=== PATIENT | female | born 1990 | race Caucasian/White ===

== ENCOUNTER 2023-08-18 15:32 | Emergency (ER) | payer BC ==
[2023-08-18 16:34] LABS: BASOPHILS ABSOLUTE AUTO 0.02 K/uL (0.00-0.20); BASOPHILS PERCENT AUTO 0.2 % (0.0-2.0); EOSINOPHILS ABSOLUTE AUTO 0.07 K/uL (0.00-0.50); EOSINOPHILS PERCENT AUTO 0.7 % (0.0-5.0); HEMATOCRIT 40.5 % (34.0-46.0); LYMPHOCYTES ABSOLUTE AUTO 1.28 K/uL (0.50-3.50); LYMPHOCYTES PERCENT AUTO 11.9 % (10.0-50.0); MEAN CORPUSCULAR HEMOGLOBIN 30.2 pg (28.2-33.3); MEAN CORPUSCULAR HGB CONC 34.6 g/dL (31.7-36.0); MEAN CORPUSCULAR VOLUME 87.5 fL (84.0-98.0); MONOCYTES ABSOLUTE AUTO 0.97 K/uL (0.00-1.00); NEUTROPHILS PERCENT AUTO 78.2 % (45.0-80.0); PLATELET COUNT,PLT 355 K/uL (150-350); RED BLOOD CELL COUNT 4.63 M/uL (3.77-5.09); WHITE BLOOD CELL COUNT,WBC 10.7 K/uL (4.0-10.2)
[2023-08-18 16:46] LABS: ALBUMIN 3.8 g/dL (3.4-5.0); ANION GAP 12.4 meq/L (7-15); BILIRUBIN TOTAL 0.4 mg/dL (0.2-1.0); CALCIUM 8.9 mg/dL (8.5-10.1); CARBON DIOXIDE,CO2 26.6 mmol/L (21.0-32.0); CREATININE 0.85 mg/dL (0.51-1.17); EST CRCL DRUG DOSING (CG) 65.23 mL/min; MAGNESIUM 1.8 mg/dL (1.8-2.4); POTASSIUM,K 4.1 mmol/L (3.5-5.1); PROTEIN TOTAL,TP 7.6 g/dL (6.4-8.2)
== END 2023-08-18 17:42 | disposition home or self-care (01) ==
LOC: LL.ED 15:32
DX: J18.9 Pneumonia, unspecified organism (principal); E66.9 Obesity, unspecified; F17.210 Nicotine dependence, cigarettes, uncomplicated; Z68.1 Body mass index [BMI] 19.9 or less, adult
CPT/HCPCS: 36415; 80053; 83735; 85025; 99285